=== PATIENT | female | born 1980 | race Caucasian/White ===

== ENCOUNTER 2017-03-14 06:48 | Emergency (ER) | payer SELFPAY | END 2017-03-14 09:00 | disposition home or self-care (01) | LOC: ER 06:48 | DX: J32.9 Chronic sinusitis, unspecified (principal); F17.200 Nicotine dependence, unspecified, uncomplicated | CPT/HCPCS: 71020; 93005; 99284 ==

== ENCOUNTER 2017-03-16 14:48 | Emergency (ER) | payer SELFPAY | END 2017-03-16 17:52 | disposition home or self-care (01) | LOC: ER 14:48 | DX: R13.10 Dysphagia, unspecified (principal); F17.200 Nicotine dependence, unspecified, uncomplicated | CPT/HCPCS: 96372; 99282 ==